=== PATIENT | male | born 1990 | race Caucasian/White ===

== ENCOUNTER 2023-01-10 18:06 | Emergency (ER) | payer OTHER ==
[2023-01-10 18:13] VITALS: BP 138/78; PULSE 95; RESP 20; TEMP 98; BMI 31.5
[2023-01-10] MEDS ORDERED: DIPHTH,PERTUSS(ACELL),TET 0.5 ML DISP.SYRIN IM ONE ×2 (18:45→18:59)
== END 2023-01-10 20:09 | disposition home or self-care (01) ==
LOC: JER 18:06
PROC: 0HQGXZZ Repair Left Hand Skin, External Approach (ICD-10-PCS; principal; 2023-01-10)
PROC: 3E0234Z Introduction of Serum, Toxoid and Vaccine into Muscle, Percutaneous Approach (ICD-10-PCS; 2023-01-10)
DX: S51.022A Laceration with foreign body of left elbow, initial encounter (principal); M25.522 Pain in left elbow; S30.811A Abrasion of abdominal wall, initial encounter; V28.09XA Other motorcycle driver injured in noncollision transport accident in nontraffic accident, initial encounter
CPT/HCPCS: 12002-25; 73070-TC-LT-FY; 90471; 90715; 99283-25

== ENCOUNTER 2023-01-15 17:17 | Emergency (ER) | payer OTHER ==
[2023-01-15 17:21] VITALS: BP 138/71; PULSE 99; RESP 18; TEMP 98; BMI 31.5
[2023-01-15] MEDS ORDERED: CEPHALEXIN MONOHYDRATE 500 MG CAPSULE (UD) PO ONE (18:23)
[2023-01-15] MEDS ORDERED: SULFAMETHOXAZOLE/TRIMETHOPRIM 800MG/160MG D.S. TABLET PO ONE (18:23)
[2023-01-15] MEDS ORDERED: CEPHALEXIN MONOHYDRATE 500 MG CAPSULE (UD) ONE (18:29)
[2023-01-15] MEDS ORDERED: BACITRACIN ZINC 15 GM TUBE TOPICAL OINTMENT ONE (18:29)
[2023-01-15] MEDS ORDERED: SULFAMETHOXAZOLE/TRIMETHOPRIM 800MG/160MG D.S. TABLET ONE (18:30)
== END 2023-01-15 18:36 | disposition home or self-care (01) ==
LOC: JERFT 17:17
DX: R22.32 Localized swelling, mass and lump, left upper limb (principal); S51.012D Laceration without foreign body of left elbow, subsequent encounter; L03.114 Cellulitis of left upper limb; V89.2XXD Person injured in unspecified motor-vehicle accident, traffic, subsequent encounter
CPT/HCPCS: 99283-25

== ENCOUNTER 2023-10-05 20:20 | Emergency (ER) | payer OTHER ==
[2023-10-05 20:49] VITALS: BP 154/80; PULSE 79; RESP 20; TEMP 99.4; BMI 28.0
== END 2023-10-05 22:19 | disposition home or self-care (01) ==
LOC: JER 20:20
DX: T23.171A Burn of first degree of right wrist, initial encounter (principal); K08.89 Other specified disorders of teeth and supporting structures; X16.XXXA Contact with hot heating appliances, radiators and pipes, initial encounter
CPT/HCPCS: 99281-25